=== PATIENT | male | born 1940 | race Caucasian/White ===

== ENCOUNTER 2018-06-29 11:02 | Inpatient (IN) | payer MEDICARE ==
--- NOTE | 2018-06-29 11:22 | ED Physician Chart ---
ED Chief Complaint/HPI - Patient Information Date Seen:: 06/29/18 Time Seen:: 11:10 Chief Complaint:: Agitation History of Present Illness:: onset x 3 days of agitation and anxiety; no report of trauma, H/As, S/T, neck pain, SIs, C/P, SOB, Abd. Pain, or urinary s/s Historian:: Patient, Friend Review:: Nurse's Note Reviewed, Old Chart Reviewed ED Review of Systems - Review of Systems General/Constitutional: No fever, No chills, No weight loss, No weakness, No diaphoresis, No edema, No loss of appetite Skin: No skin lesions, No rash, No bruising Head: No headache, No light-headedness Eyes: No loss of vision, No pain, No diplopia ENT: No earache, No nasal drainage, No sore throat, No tinnitus Neck: No neck pain, No swelling, No thyromegaly, No stiffness, No mass noted Cardio Vascular: No chest pain, No palpitations, No PND, No orthopnea, No edema Pulmonary: No SOB, No cough, No sputum, No wheezing GI: No nausea, No vomiting, No diarrhea, No pain, No melena, No hematochezia, No constipation, No hematemesis G/U: No dysuria, No frequency, No hematuria, No nacturia Musculoskeletal: No bone or joint pain, No back pain, No muscle pain Endocrine: No polyuria, No polydipsia Psychiatric: Prior psych history, Depression, Anxiety, No suicidal ideation, No homicidal ideation, No auditory hallucination, No visual hallucination Hematopoietic: No bruising, No lymphadenopathy Allergic/Immuno: No urticaria, No angioedema Neurological: No syncope, No focal symptoms, No weakness, No paresthesia, No headache, No seizure, No dizziness, No confusion, No vertigo ED Past Medical History - Past Medical History Obtainable: Yes Past Medical History: HTN Family History: HTN Social History: Non Smoker, No Alcohol, No Drug Use, Single, Care Facility Surgical History: None Psychiatricy History: Depression, Bipolar Medication: Reviewed Family Medical History - Family Member Father History Unknown: Yes Living Status: ED Physical Exam - Physical Examination General/Constitutional: Awake, Well-developed, well-nourished, Alert, No distress, GCS 15, Non-toxic appearing, Ambulatory Head: Atraumatic Eyes: Lids, conjuctiva normal, PERRL, EOMI Skin: Nl inspection, No rash, No skin lesions, No ecchymosis, Well hydrated, No lymphadenopathy ENMT: External ears, nose nl, TM canals nl, Nasal exam nl, Lips, teeth, gums nl , Oropharynx nl, Tonsils nl Neck: Nontender, Full ROM w/o pain, No JVD, No nuchal rigidity, No bruit, No mass, No stridor Other Neck comments:: supple; no meningeal signs Respiratory: Nl effort/Exclusion, Clear to Auscultation, No Wheeze/Rhonchi/Rales Cardio Vascular: RRR, No murmur, gallop, rubs, NL S1 S2, Carotid/Femoral/Distal pulses equal bilaterally GI: No tenderness/rebounding/guarding, No organomegaly, No hernia, Normal BS's, Nondistended, No mass/bruits, No McBurney tenderness Other GI comments:: no pulsatile masses : No CVA tenderness Extremities: No tenderness or effusion, Full ROM, normal strength in all extremities, No edema, Normal digits & nails Neuro/Psych: Alert/oriented, DTR's symmetric, Normal sensory exam, Normal motor strength, Judgement/insight normal, Mood normal, Normal gait, No focal deficits Other Neuro/Psych comments:: + Psychomotor Agitation; no SIs; Mood/Affect: Stable Misc: Normal back, No paraspinal tenderness ED Labs/Radiology/EKG Results - Lab Results Comments:: Reviewed - EKG Interpretations EKG Time:: 12:09 Rate & Rhythm: 62; NSR Comments:: non-specific st-t changes ED Septic Shock - . Is Septic Shock (SBP<90, OR Lactate>4 mmol\L) present?: No ED Reassessment (Disposition) - Reassessment Reassessment Condition:: Improved - Diagnosis Diagnosis:: Agitation; Medical Clearance; Anxiety; Bipolar Disorder; Psychosis - Aftercare/Follow up Instructions Aftercare/Follow-Up Instructions:: Counseled pt regarding lab results/diagnosis & need follow up, Counseled pt & family regarding lab results/diagnosis & need follow up - Patient Disposition Discharge/Transfer:: Acute Care w/in this hosp Admitted to:: [facility] Condition at Disposition:: Stable, Improved
[2018-06-29 12:07] LABS: % BASOPHILS 0.3 % (0.0-2.0); % EOSINOPHILS 5.5 % (0.0-5.0); % LYMPHOCYTES 18.8 % (20.0-50.0); % MONOCYTES 11.5 % (2.0-10.0); % NEUTROPHILS 63.9 % (40.0-80.0); EOSINOPHILE ABSOLUTE 0.3 Th/cmm (0.1-0.4); HEMATOCRIT 37.4 % (41.0-60); HEMOGLOBIN 12.9 gm/dL (12-16); LYMPHOCYTE ABSOLUTE 1.2 Th/cmm (1.5-3.0); MEAN CELL VOLUME 92.1 fl (80-99); MEAN CORPUSCULAR HEMOGLOBIN 31.7 pg (27.0-31.0); MEAN CORPUSCULAR HGB CONC 34.4 pg (28.0-36.0); MEAN PLATELET VOLUME 8.4 fl; MONOCYTE ABSOLUTE 0.7 Th/cmm (0.3-1.0); PLATELET COUNT 218 Th/cmm (150-400); RED BLOOD COUNT 4.05 Mil/cmm (3.80-5.80); RED CELL DISTRIBUTION WIDTH 11.8 % (11.5-20.0); WHITE BLOOD COUNT 6.2 Th/cmm (4.8-10.8)
[2018-06-29 12:20] LABS: ACETAMINOPHEN < 10.0 ug/mL (10.0-30.0); ALB/GLOB RATIO 1.5 (1.0-1.8); ALKALINE PHOSPHATASE 54 U/L (34-104); ANION GAP 14.1 (7.0-16.0); BILIRUBIN,TOTAL 0.5 mg/dL (0.3-1.0); BUN - UREA NITROGEN 20 mg/dL (7-25); CALCIUM SERUM 9.5 mg/dL (8.6-10.3); CARBON DIOXIDE 18.5 mEq/L (21.0-31.0); CHLORIDE 107 mEq/L (98-107); CHOLESTEROL 207 mg/dL (<200); GLUCOSE 100 mg/dL (70-105); HDL -HIGH DENSITY LIPOPROTEIN 36 mg/dL (23-92); POTASSIUM SERUM 3.6 mEq/L (3.5-5.1); SALICYLATES (ASPIRIN) < 25.0 mg/L (30.0-100.0); SGOT 12 U/L (13-39); SGPT/ALT 11 U/L (7-52); SODIUM SERUM 136 mEq/L (136-145); TOTAL PROTEIN,SERUM 6.7 gm/dL (6.0-8.3); TRIGLYCERIDES 120 mg/dL (<150)
[2018-06-29 13:07] LABS: URINE SOURCE CLEAN C
[2018-06-29 13:41] LABS: URINE BILIRUBIN NEGATIVE (NEGATIVE); URINE BLOOD MODERATE (NEGATIVE); URINE GLUCOSE (UA) NEGATIVE (NEGATIVE); URINE KETONE NEGATIVE (NEGATIVE); URINE LEUKOCYTE ESTERASE NEGATIVE (NEGATIVE); URINE MICROSCOPIC INDICATED? YES; URINE NITRATE NEGATIVE (NEGATIVE); URINE PH 5.5 (4.6 - 8.0); URINE PROTEIN NEGATIVE (NEGATIVE); URINE UROBILINOGEN 0.2 E.U./dL (0.2 - 1.0)
[2018-06-29 13:54] LABS: BENZODIAZEPINES QUAL URINE POSITIVE (NEGATIVE); TRICYCLICS (TCA) QUAL. URINE POSITIVE (NEGATIVE)
[2018-06-29 13:55] LABS: AMPHETAMINE URINE NEGATIVE (NEGATIVE); BARBITURATES URINE NEGATIVE (NEGATIVE); CANNABINOID THC NEGATIVE (NEGATIVE); COCAINE METABOLITE QUAL URINE NEGATIVE (NEGATIVE); METHADONE URINE NEGATIVE (NEGATIVE); METHAMPHETAMINES QUAL URINE NEGATIVE (NEGATIVE); OPIATES (MORPHINE) QUAL. URINE NEGATIVE (NEGATIVE); PHENCYCLIDINE (PCP) URINE NEGATIVE (NEGATIVE)
[2018-06-29 14:03] LABS: URINE COLOR YELLOW
[2018-06-29 14:04] LABS: URINE CLARITY HAZY (CLEAR)
[2018-06-29 14:06] LABS: URINE RBC NONE SEEN /hpf (0-5)
[2018-06-29 14:07] LABS: URINE BACTERIA FEW /hpf (NONE SEEN); URINE EPITHELIAL CELLS NONE SEEN /lpf (FEW)
[2018-06-29 14:33] VITALS: BP 103/64
[2018-06-29] MEDS ORDERED: Magnesium Hydroxide (MOM) 30 mL UDC PO PRN (14:36)
[2018-06-29] MEDS ORDERED: Maalox 30 mL Cup PO PRN (14:36)
[2018-06-30] MEDS: Multivitamin Tab PO SCH ×2 (09:59→11:46)
[2018-06-30] MEDS ORDERED: Pneumococcal Vaccine 0.5 mL Vial IM ONE (15:00)
[2018-06-30] MEDS: Atorvastatin Calcium 10 MG TAB PO SCH (21:05)
--- NOTE | 2018-07-01 00:36 | Consultation ---
DATE OF CONSULTATION: 06/29/2018 MEDICINE CONSULT Consult requested by psychiatrist for medical management of the patient's high blood pressures, cholesterol issue, and also chronic seizure. HISTORY OF PRESENT ILLNESS: The patient is essentially a 77-year-old male with history of chronic depression, hypertension, hyperlipidemia, chronic seizure disorder, who has been a long-term resident at a [facility] facility. The patient was acting out, more restless and agitated, also stating that he wanted to kill himself. The patient also refused to take his oral meds. Per nursing staff, he was noted to be quite delusional. He was subsequently transferred here to [facility] for further psychiatric evaluation. At this present moment, the patient denied headache, chest pain, or shortness of breath. PAST MEDICAL HISTORY: Again significant for hypertension, hyperlipidemia, and chronic seizure disorder. PAST SURGICAL HISTORY: None. FAMILY HISTORY: Negative for hypertension, cancer, diabetes. SOCIAL HISTORY: The patient is single. Denies any tobacco or alcohol usage. REVIEW OF SYSTEMS: A 14-point system reviewed, pertinent positive mentioned in HPI and past medical history. Other systems reviewed were negative otherwise. PHYSICAL EXAMINATION: VITAL SIGNS: Stable, afebrile. For detailed vital signs, please see nurse's note. GENERAL: Well-developed, well-nourished male, in no distress. HEENT: PERRL, EOMI. Throat clear. Moist mucosa. NECK: Supple, no nodes. LUNGS: Clear. HEART: Regular rate. No murmur. ABDOMEN: Soft, nontender, nondistended. GENITOURINARY: No CVA tenderness. PSYCHIATRIC: Normal insight and judgement. NEUROLOGIC: Alert and oriented x 3. No focal findings noted. MUSCULOSKELETAL: No edema. SKIN: Good skin turgor. No rash. LABORATORY DATA: CBC is within normal limits. Chem-7 is normal. Liver function test normal. His troponin was negative. His total cholesterol is 207, LDL is 145. DICTATION ENDS HERE JOB# [id number]
--- NOTE | 2018-07-01 01:01 | Consultation ---
DATE OF CONSULTATION: 06/29/2018 ADDENDUM LABORATORY DATA: His total cholesterol 207, LDL 145, HDL 36. TSH is normal. UA negative, just show moderate blood. Microscopic negative, rbc's negative. Urine tox screen is positive for tricyclic and benzodiazepine. Blood alcohol was negative. ASSESSMENT: 1. Essentially suicidal ideation. 2. Major depressive disorder. 3. Hypertension, controlled. 4. Hyperlipidemia. 5. Chronic seizure disorder. PLAN: We will continue the patient on his current blood pressure medication and seizure meds. We will start the patient on atorvastatin 20 mg at bedtime. The patient will need to be put on 5150 hold and we will continue it. The patient will be admitted to inpatient psych treatment and therapy. Psych medication per psychiatrist, which will be Dr. Masters. JOB# [id number]
--- NOTE | 2018-07-01 02:02 | Psychiatric Evaluation ---
DATE OF SERVICE: 06/30/2018 IDENTIFYING DATA: The patient is a 77-year-old male, resident of a Nursing Home Facility that is the [facility] in [place], [place]. The patient is interviewed. Staff was spoken to and chart is reviewed. During the evaluation, the patient is reported to have been having difficult time to cope with the stress and the patient has been reported to be very agitated, screaming and yelling and has been striking out at the staff. The patient is mainly having problem with the female staff and the patient could not be contained at a lower level of care and hence the patient has been referred over here for stabilization. PAST PSYCHIATRIC HISTORY: Details are not known. MEDICAL HISTORY: Physical examination is requested to be done by Dr. Jeffry Washington. SUBSTANCE ABUSE HISTORY: None. PHYSICAL OR SEXUAL ABUSE HISTORY: None. LEGAL PROBLEMS: None at this time. MENTAL STATUS EXAMINATION: The patient is a 77-year-old, looking his stated age, superficially cooperative. Eye contact is fair. Mood is noted to be irritable. The patient is stating that there is no reason for him to be in here, he needs to be out. He has no clue where he is going to be leaving when he leaves this place. The patient's coping skills at this time are noted to be very poor. Insight and judgment are also noted to be very much impaired. Impulse control is noted to be poor. The patient has problem with her short-term and long-term memory. The patient is reported to have been inappropriate with the females. DIAGNOSTIC IMPRESSION: AXIS I: A. Dementia and behavioral change, secondary trait. B. Psychotic disorder, not otherwise specified. AXIS II: None. AXIS III: As per Dr. Washington. IMMEDIATE TREATMENT PLAN: The patient is going to be observed on inpatient unit, provided with supportive Psychotherapy, will be continued with the Seroquel. ESTIMATED LENGTH OF STAY: 3-5 days. DISCHARGE CRITERIA: When the patient is no longer a threat to self or others and be able to cope up with the stress. JOB# [id number]
[2018-07-01] MEDS: Multivitamin Tab PO SCH ×2 (09:00→09:08)
[2018-07-01] MEDS: Atorvastatin Calcium 10 MG TAB PO SCH (20:49)
--- NOTE | 2018-07-02 03:10 | Consultation ---
DATE OF CONSULTATION: 07/01/2018 REFERRING PHYSICIAN: Elmer Masters MD TYPE OF CONSULTATION: Psychology. HISTORY OF PRESENT ILLNESS: The patient is a 77-year-old male. The following is by review of the medical record and by the patient's self- report. The patient is a resident of [facility] in [place], [place]. The staff reports the patient has been getting very agitated with screaming and yelling episodes as well as striking out at the staff. The staff included that the patient is having a problem with female staff specifically. The patient was uncontainable and therefore transferred here for stabilization. Upon interview, the patient did not understand why he was being hospitalized and denied the reported behavior. PAST MEDICAL HISTORY: Please see history and physical by Dr. Washington. PAST PSYCHIATRIC HISTORY: Records are unavailable. Details are unknown. SUBSTANCE ABUSE HISTORY: The patient declined to answer these questions. PSYCHOSOCIAL HISTORY: The patient states that he is and that he has no children who are involved in his care. The patient did not answer questions about occupational or educational history. The patient states no specific islam affiliation. The patient denied any history of physical or sexual abuse. The patient did not answer questions about current legal problems. The patient expects to return to his placement. MENTAL STATUS EXAMINATION: The patient appears to be his stated age. Attitude is superficially cooperative. Eye contact is fair. Speech is spontaneous, but loud. Mood is irritable. Affect is constricted. Thought process shows to be confused. The patient denied any suicidal or homicidal ideation, plan or intention. The patient denied any auditory or visual hallucinations. The patient stated he does not understand the reason for his hospitalization. The patient's coping skills are very poor. The patient's behavior has been difficult to redirect on the unit. Impulse control is inadequate. Concentration is poor. Sensorium is alert and oriented to self and place only. The patient did not participate in the memory assessment. It appears short term memory may be impaired. Long-term memory needs further evaluation. The patient did not participate in the interpretation of proverbs. The patient denied inappropriate behavior with the female staff. Insight is poor. Judgment is impaired. DIAGNOSTIC IMPRESSION: AXIS I: 1. Dementia with behavioral disturbance. 2. Psychotic disorder, not otherwise specified. AXIS II: Deferred. AXIS III: Per Dr. Washington. TREATMENT PLAN: The patient has been seen by Dr. Masters for psychiatric evaluation and for the management of the patient's psychotropic medications. The patient is being continued on Seroquel according to the attending psychiatrist. We will provide supportive psychotherapy to include reality orientation, differentiation and integration. We will provide deescalation and limit setting. We will provide boundary definitions and boundary awareness. We will encourage the patient to demonstrate emotional and self-regulation as well as appropriate behavior and interactions with female staff at his placement. The behavioral management approach will continue to be provided throughout the patient's hospital stay. We will provide coping strategies for phase of life issues. We will provide motivational enhancement for the patient to become compliant and stay compliant with all aspects of his care and treatment. We will include stress management to assist the patient in increasing his frustration tolerance. We will provide daily opportunities for the patient to verbally contract for safety to include no self harm and no harm to others. Thank you, Dr. Masters for this consult and the opportunity to participate in this patient's care. JOB# [id number] [place]
[2018-07-02] MEDS: Multivitamin Tab PO SCH (09:20)
--- NOTE | 2018-07-02 15:23 | Progress Notes ---
DATE: 07/01/2018 SUBJECTIVE: Staff was spoken to. The patient is interviewed. Mood is noted to be irritable. Affect is constricted. Continues to be very paranoid. Insight and judgment are noted to be still impaired. Impulse control is noted to be limited. Coping skills are noted to be limited. The patient has short-term memory deficits, but long-term memory seems to be fair at this time. ASSESSMENT: The patient is grossly psychotic and impulsive. PLAN: To continue the patient with the supportive therapy, encouraged the patient to verbalize the concerns rather than to act out. JOB# [id number]
[2018-07-02] MEDS: Atorvastatin Calcium 10 MG TAB PO SCH (21:27)
--- NOTE | 2018-07-03 00:11 | Progress Notes ---
DATE: 07/01/2018 SUBJECTIVE: The patient is awake and alert. The patient is resting comfortably in bed. The patient agreed to take his oral meds today. The patient is less [place] and less aggressive with medical staff. OBJECTIVE: VITAL SIGNS: Stable, afebrile. GENERAL: No apparent distress. HEENT: Normal. LUNGS: Clear. HEART: Regular rhythm, no murmur. ABDOMEN: Soft, nontender, nondistended. NEUROLOGIC: No focal deficits noted. ASSESSMENT: 1. Suicidal ideation. 2. Major depressive disorder. 3. Hypertension. 4. Hyperlipidemia. 5. Chronic seizure disorder. PLAN: 1. Continue current inpatient psych therapy and treatment. 2. Continue current blood pressure medication and cholesterol medicine if he agreed to take some medication. 3. The patient remains on 5150 hold. JOB# [id number]
--- NOTE | 2018-07-03 00:16 | Progress Notes ---
DATE: 07/02/2018 SUBJECTIVE: The patient is awake, alert. The patient this morning refused his oral meds. No reported seizure disorder. No headache or dizziness. OBJECTIVE: VITAL SIGNS: Temperature 98.7, blood pressure 121/84, pulse 63, respirations 20. GENERAL: No apparent distress. HEENT: Normal. LUNGS: Clear. HEART: Regular rhythm. No murmur. ABDOMEN: Soft, nontender, nondistended. NEUROLOGIC: No focal findings noted. ASSESSMENT: 1. Suicidal ideation. 2. Major depression. 3. Hypertension. 4. Hyperlipidemia. 5. Chronic seizure disorder. PLAN: 1. Continue inpatient psych therapy and treatment. 2. Continue psychotropic medication per psychiatrist. 3. Continue blood pressure medication and cholesterol meds if the patient agrees. JOB# [id number]
--- NOTE | 2018-07-03 04:16 | Progress Notes ---
DATE: 06/30/2018 INTERNAL MEDICINE PROGRESS NOTE SUBJECTIVE: The patient is awake and alert. The patient's emotion remained quite labile and he gets agitated at times, sometimes he will take his medicines and he does not. No reported seizure. Denies any dizziness or headache. OBJECTIVE: VITAL SIGNS: Stable and afebrile. GENERAL: No apparent distress. HEENT: Normal. LUNGS: Clear. HEART: Regular rhythm without murmur. ABDOMEN: Soft and nondistended. ASSESSMENT: 1. Suicidal ideation. 2. Major depressive disorder. 3. Hypertension. 4. Hyperlipidemia. 5. Chronic seizure disorder. PLAN: Continue the patient's active therapy and treatment. The patient remains on 5150 hold. Continue psych meds per Dr. Masters's presentation. JOB# [id number]
--- NOTE | 2018-07-03 05:20 | Progress Notes ---
DATE: 07/02/2018 SUBJECTIVE: Staff was spoken to. The patient is interviewed. Mood is noted to be irritable. Affect is constricted. The patient continues to be very delusional. The patient is very forgetful. The patient has been having short-term memory deficits, but long-term memory seems to be fair. Coping skills at this time are noted to be poor. The patient has been reluctant to comply with the medication stating that he is doing fine. What all he needs is a TV and he states that he is a good cook and ____ here can be improved if he was there in the kitchen. The patient is going on a tangent. ASSESSMENT: The patient is still impulsive and paranoid. PLAN: To continue the patient with the supportive therapy, encouraged the patient to verbalize the concerns rather than to act out. JOB# [id number]
[2018-07-03] MEDS: Multivitamin Tab PO SCH (12:50)
[2018-07-03] MEDS: Atorvastatin Calcium 10 MG TAB PO SCH (20:38)
--- NOTE | 2018-07-04 04:15 | Progress Notes ---
DATE: 07/03/2018 SUBJECTIVE: Staff was spoken to. The patient is interviewed. Mood is noted to be dysphoric. Coping skills are noted to be very poor. The patient is going on a tangent. The patient is stating that he is okay without much of medication. Insight and judgment are noted to be still impaired. Impulse control is noted to be limited. Coping skills are noted to be limited. The patient has been testing the ____ and the patient has no insight into his illness. ASSESSMENT: The patient is still impulsive. PLAN: To continue the patient with the supportive therapy and followup and increase the dose on the Seroquel to 50 mg twice a day and followup. JOB# [id number]
[2018-07-04] MEDS: Multivitamin Tab PO SCH (09:07)
[2018-07-04] MEDS: Atorvastatin Calcium 10 MG TAB PO SCH (20:54)
--- NOTE | 2018-07-05 02:37 | Progress Notes ---
DATE: 07/04/2018 PSYCHOLOGY PROGRESS NOTE SUBJECTIVE: The patient is seen and is interviewed. Case is discussed with staff. The patient presents as depressed and withdrawn. The patient is going off on a tangent, but is cognitively redirectable at times. Staff reports the patient's impulse control continues to be poor. The patient has no insight into his illness. The patient is taking his p.o. medications. OBJECTIVE: Mood is depressed. Affect is mood congruent. Thought process is markedly tangential and depressogenic. The patient denied any hallucinations or delusions. The patient's behavior has been withdrawn; however, with less agitation as before. ASSESSMENT AND PLAN: The patient continues to be impulsive. We provided behavioral management, which included encouragement for the patient to demonstrate emotional and self-regulation and to verbalize his concerns versus acting out. We will continue to provide supportive therapy throughout the patient's hospital stay. We provided coping strategies for phase of life issues as well. We provided remotivation for the patient to stay compliant with all aspects of his care and treatment. We will follow up in 2 days to continue the present treatment if the patient remains admitted on the unit. JOB# [id number] [place]
--- NOTE | 2018-07-05 03:50 | Progress Notes ---
DATE: 07/04/2018 SUBJECTIVE: Staff was spoken to. The patient is interviewed. Mood is noted to be irritable. Affect is constricted. Insight and judgment at this time are noted to be still impaired. Impulse control is noted to be poor. Coping skills are also noted to be poor. The patient has been having difficult time to cope with the stress. No side effects to the medications are noted. The patient continues to be very confused and not making any sense. Paranoid delusions are noted and hence it is decided to change the Seroquel 200 mg at night time and follow the patient with the supportive therapy. JOB# [id number]
--- NOTE | 2018-07-05 04:05 | Progress Notes ---
DATE: 07/03/2018 SUBJECTIVE: The patient is awake and alert. The patient still feels depressed and delusional at times. No chest pain or shortness of breath. OBJECTIVE: VITAL SIGNS: Stable. GENERAL: No apparent distress. HEENT: Normal. LUNGS: Clear. HEART: Regular rhythm. No murmur. ABDOMEN: Soft, nontender, nondistended. GENITOURINARY: No CVA tenderness. PSYCH: Poor insight and judgment. ASSESSMENT: 1. Status post suicidal ideation. 2. Acute on chronic major depression. 3. Hypertension. 4. Chronic seizure disorder. 5. Hyperlipidemia. PLAN: Continue current blood pressure medication. Continue lovastatin. Continue inpatient psych treatment and psych medication per psychiatrist. [facility]# [id number]
--- NOTE | 2018-07-05 04:12 | Progress Notes ---
DATE: 07/04/2018 SUBJECTIVE: The patient lying in bed. No events overnight. The patient remained delusional, also at times can be agitated. The patient is refusing his oral meds today. OBJECTIVE: VITAL SIGNS: Stable, afebrile. GENERAL: No apparent distress. HEENT: Normal. LUNGS: Clear. HEART: Regular rhythm, no murmur. ABDOMEN: Soft, nontender, nondistended. GENITOURINARY: No CVA tenderness. PSYCH: Poor insight and judgment. ASSESSMENT: 1. Status post suicidal ideation. 2. Acute on chronic major depression. 3. Hypertension. 4. Hyperlipidemia. 5. Chronic seizure disorder. PLAN: 1. Continue inpatient psych therapy and treatment. 2. Continue psych med per Psychiatry. 3. Continue current blood pressure medications. 4. Continue current seizure meds. JOB# [id number]
[2018-07-05] MEDS: Multivitamin Tab PO SCH (09:58)
[2018-07-05] MEDS: Atorvastatin Calcium 10 MG TAB PO SCH (21:08)
--- NOTE | 2018-07-06 05:21 | Progress Notes ---
DATE: 07/05/2018 PSYCHIATRIC PROGRESS NOTE SUBJECTIVE: Staff was spoken to. The patient is interviewed. Mood is noted to be irritable. Affect is constricted. Insight and judgment are noted to be impaired. Impulse control is noted to be poor. Coping skills are noted to be very poor. The patient is reporting that he does not need any medications. He has been doing fairly well. Coping skills at this time are noted to be very poor. The patient has been having short-term as well as long-term memory deficits. ASSESSMENT: The patient is still paranoid and demented. PLAN: To continue the patient with the supportive therapy. I encouraged the patient to verbalize the concerns rather than to act out. [facility]# [id number]
[2018-07-06] MEDS: Multivitamin Tab PO SCH (10:10)
[2018-07-06] MEDS: Atorvastatin Calcium 10 MG TAB PO SCH (21:09)
--- NOTE | 2018-07-07 06:01 | Progress Notes ---
DATE: 07/06/2018 PSYCHIATRIC PROGRESS NOTE SUBJECTIVE: Staff was spoken to. The patient is interviewed. Mood is noted to be irritable. Affect is constricted. The patient is still very confused. Coping skills are noted to be very poor. The patient has short-term memory deficits. Long-term memory seems to be fair. The patient goes on a tangent. The patient has been confabulating. Insight and judgment are very much impaired. Impulse control is noted to be very poor. The patient is being closely monitored for his aggressive behavior. Staff are reporting that the patient has been doing okay, but needs to be redirected most of the time. Sleep and appetite are noted to be fair at this time. PLAN: To continue the patient with the supportive therapy, I encouraged the patient to comply with the medication and follow up. JOB# [id number]
[2018-07-07] MEDS: Multivitamin Tab PO SCH (09:41)
--- NOTE | 2018-07-07 16:20 | Progress Notes ---
DATE: 07/06/2018 PSYCHOLOGY PROGRESS NOTE SUBJECTIVE: The patient is seen and is interviewed. Case is discussed with staff. The patient continues to present as easily irritated. Staff reports the patient's impulse control has not improved. The patient continued to repeat that he does not believe that he needs any medications and that he doesn't need to be in the hospital. The patient's suspicions of others persists. There is some evidence of possible persecutory type of delusion. OBJECTIVE: Mood is irritable. Affect is constricted. Thought process is confused and includes suspiciousness and possible persecutory type delusional thought. He denied any hallucinations. The patient's behavior has been intermittently compliant with medications. ASSESSMENT: The patient's paranoia persists. The patient's intermittent noncompliance with treatment persists. We provided supportive psychotherapy and included reality orientation, differentiation, and integration. We provided remotivation for the patient to become compliant and stay compliant with his care and treatment. We encouraged the patient to demonstrate emotional and self regulation and to verbalize his concerns versus acting out. We provided coping strategies for phase of life issues. We will follow up in 2 days to continue the present treatment if the patient is still admitted on the unit. JOB# [id number] [place]
--- NOTE | 2018-07-07 16:24 | Progress Notes ---
DATE: 07/06/2018 INTERNAL MEDICINE PROGRESS NOTE SUBJECTIVE: The patient is awake, alert. The patient denies any further suicidal ideation. The patient moves still quite labile. He can be agitated at times. The patient is taking oral meds. OBJECTIVE: VITAL SIGNS: Stable, afebrile. GENERAL: No acute distress. HEENT: Normal. LUNGS: Clear. HEART: Regular rate and rhythm, no murmur. ABDOMEN: Soft, nondistended. NEUROLOGIC: No focal findings noted. ASSESSMENT: 1. Status post suicide ideation. 2. [id number] major depression. 3. Hypertension. 4. Chronic seizure disorder. PLAN: 1. Continue inpatient psych treatment and therapy. 2. Continue psychotropic medication per psychiatrist. 3. Continue current seizure meds. JOB# [id number]
--- NOTE | 2018-07-07 16:29 | Progress Notes ---
DATE: 07/05/2018 SUBJECTIVE: The patient is awake, alert. The patient with minimal complaints. He remains delusional at times and agitated. The patient is currently taking oral meds. OBJECTIVE: VITAL SIGNS: Stable, afebrile. GENERAL: No distress. HEENT: Normal. LUNGS: Clear. CARDIOVASCULAR: Regular rhythm, no murmur. ABDOMEN: Soft, nondistended. NEUROLOGIC: No focal findings. ASSESSMENT: 1. Acute on chronic major depression. 2. Chronic anxiety. 3. Hypertension. 4. Chronic seizure disorder. 5. Status post suicide ideation. PLAN: 1. Continue inpatient psych treatment and therapy. 2. Continue psych medication per psychiatrist. 3. Continue current blood pressure medication. [facility]# [id number]
[2018-07-07] MEDS: Atorvastatin Calcium 10 MG TAB PO SCH (20:55)
--- NOTE | 2018-07-08 02:18 | Progress Notes ---
DATE: 07/07/2018 PSYCHIATRIC PROGRESS NOTE SUBJECTIVE: Staff was spoken to. The patient is interviewed. Mood is noted to be less irritable. Affect is appropriate. The patient is pacing most of the time on the unit. Insight and judgment are noted to be improving. Impulse control seems to be fair. No major behavioral problems are reported. The patient, however, tends to test the limits and not willing to take the medication. The patient is currently on 100 mg of Seroquel and has been able to tolerate the medication. ASSESSMENT: The patient is still psychotic and impulsive. PLAN: Continue the patient with the current medications and follow up. JOB# [id number]
[2018-07-08] MEDS: Multivitamin Tab PO SCH (08:47)
--- NOTE | 2018-07-08 13:48 | Discharge Summary ---
DATE OF DISCHARGE: 07/09/2018 PSYCHIATRIC DISCHARGE SUMMARY IDENTIFYING DATA: The patient is a 77-year-old resident of a penitentiary facility [facility]. Information obtained by directly interviewing the patient as well as reviewing the admission papers. JUSTIFICATION OF HOSPITALIZATION: The patient is admitted for acute agitation and irritability and aggressive towards the female staff. DIAGNOSES AT THE TIME OF ADMISSION: AXIS I: A. Dementia and behavioral changes secondary to dementia. B. Psychotic disorder, not otherwise specified. AXIS II: None. AXIS III: As per Dr. Washington. HISTORY OF PRESENT ILLNESS: Please refer the 06/30/2018 dictation done by me. HOSPITAL COURSE AND RESPONSE TO TREATMENT: The patient had the blood work done and has been reviewed and hematocrit is noted to be at 37.4 and eosinophils are raised at 5.5 and cholesterol is noted to be 207. The rest of the labs are noted to be within normal limits except for a little bit of blood in the urine and labs have been reviewed by Dr. Washington and the patient has been closely monitored in the unit, provided with supportive psychotherapy. The patient has been given the amlodipine for his high blood pressure and the patient has also been given the lisinopril. In view of the psychosis, the patient has been given the quetiapine, which was given at 100 mg at bedtime. The patient has been observed and was noted to be doing fairly well and hence the patient was discharged on 07/08/2018 with recommendation that he is going to be seeking treatment on an outpatient basis. MENTAL STATUS EXAMINATION: At the time of discharge, the patient's mood is noted to be anxious. Affect is appropriate. Not suicidal or homicidal. Insight and judgment are noted to be fair. Impulse control is also noted to be fair. No major behavioral problems are noted. DIAGNOSES AT THE TIME OF DISCHARGE: AXIS I: A. Psychotic disorder, not otherwise specified. B: Dementia and behavioral change, secondary trait. AXIS II: None. AXIS III: Hypertension. AFTERCARE PLAN: The patient is discharged back to the [facility]it[facility]iary facility for further followup. JOB# [id number] [place]
--- NOTE | 2018-07-08 17:48 | Progress Notes ---
DATE: 07/07/2018 SUBJECTIVE: The patient is awake and alert. The patient sitting in the cafeteria room. No new issues per nursing staff. The patient denies any headache or dizziness. OBJECTIVE: VITAL SIGNS: Stable, afebrile. GENERAL: No apparent distress. HEENT: Normal. LUNGS: Clear. HEART: Regular rhythm. No murmur. ABDOMEN: Soft, nontender, and nondistended. GENITOURINARY: No CVA tenderness. PSYCHIATRIC: Poor insight and judgment. ASSESSMENT: 1. Status post suicidal ideation. 2. Sztiu-sk-palzdmk depression. 3. Hyperlipidemia. 4. Chronic seizure disorder. PLAN: 1. Continue inpatient psych service and treatment. 2. Continue psychotropic medication per psychiatrist. 3. Continue current seizure meds. JOB# [id number]
[2018-07-08] MEDS: Atorvastatin Calcium 10 MG TAB PO SCH (21:23)
[2018-07-09] MEDS: Multivitamin Tab PO SCH (11:04)
--- NOTE | 2018-07-09 13:21 | Progress Notes ---
DATE: 07/08/2018 SUBJECTIVE: The patient is awake and alert. The patient is sitting up at the edge of his bed. Denies any chest pain or shortness of breath. The patient remains delusional at times. Less agitated today. Denies any chest pain, short of breath. No reported seizure episodes. OBJECTIVE: VITAL SIGNS: Stable, afebrile. GENERAL: No apparent distress. HEENT: Normal. LUNGS: Clear. HEART: Regular rate and rhythm. No murmur. ABDOMEN: Soft, nontender, and nondistended. GENITOURINARY: No CVA tenderness. PSYCHIATRIC: Poor insight and judgement. NEUROLOGIC: No focal findings noted. LABORATORY AND DIAGNOSTIC DATA: No labs today. ASSESSMENT: 1. Status post suicide ideation. 2. Acute on chronic major depression. 3. Acute paranoia. 4. Hypertension. 5. Chronic seizure disorder. PLAN: Continue inpatient psych therapy treatments. Continue psych medication per psychiatrist. Continue seizure meds. [facility]# [id number]
--- NOTE | 2018-07-09 13:21 | Progress Notes ---
DATE: 07/08/2018 PSYCHOLOGY PROGRESS NOTE SUBJECTIVE: The patient is seen in the activity/dining area. The patient presents as cooperative. The patient was concerned about his medical condition. Information is deferred to the medical doctor. The staff reports the patient has been doing fairly well and seems to be motivated to continue treatment on an outpatient basis. OBJECTIVE: Mood is stabilizing. Affect is mood congruent. Thought process shows to be more goal oriented. The patient denied any hallucinations or delusions. The patient's psychosis seems to be resolving. The patient appears to be anxious about his discharge. ASSESSMENT AND PLAN: The patient's impulse control has improved. The patient denied any suicidal ideation, plan or intention. The patient's insight and judgment have improved. The patient is scheduled to be discharged today and return to his residential facility. We provided positive reinforcement for the patient to continue to be compliant with his care and treatment. We have provided remotivation for the patient to demonstrate emotional and self-regulation and verbalize his concerns versus acting out. We provided coping strategies for phase of life issues as well. No major behavioral problems are noted. No followup is indicated as the staff reports the patient is scheduled to be discharged probably today. Prognosis is fair. Thank you, Dr. Masters for this consult and the opportunity to participate in this patient's care. JOB# [id number] [place]
--- NOTE | 2018-07-09 17:05 | Progress Notes ---
DATE: 07/09/2018 SUBJECTIVE: Staff was spoken to. The patient is interviewed. Mood is noted to be anxious. Affect is appropriate. The patient was supposed to be discharged yesterday, but the facility does not have the bed and the patient has to be sent to a different facility today. No side effects to the medications are noted. The patient is not presenting with any threats to harm self or others. ASSESSMENT: The patient is stabilizing. PLAN: To discharge the patient today. JOB# [id number]
== END 2018-07-09 16:30 | DRG 885 ==
LOC: ER 11:02 → GERO2 12:26 → GERO 17:12
PROVIDERS: ADMIT Psychiatry & Neurology Psychiatry; ATTEND Psychiatry & Neurology Psychiatry
DX: F29 Unspecified psychosis not due to a substance or known physiological condition (principal); F03.91 Unspecified dementia, unspecified severity, with behavioral disturbance; R45.851 Suicidal ideations; I10 Essential (primary) hypertension; E78.5 Hyperlipidemia, unspecified; G40.909 Epilepsy, unspecified, not intractable, without status epilepticus; F41.9 Anxiety disorder, unspecified
CPT/HCPCS: 36415-UA; 80053-TC; 80061-TC; 80307; 80320-TC; 80329-TC; 81001-TC; 83036-90; 84443-TC; 84484-TC; 85025-TC; 86592-TC; 87086-90; 93005; G0410; Z7610